=== PATIENT | female | born 1955 | race Two or more races ===

== ENCOUNTER 2020-08-03 09:22 | Outpatient (CLI) | payer OTHER | END 2020-08-03 09:32 | disposition home or self-care (01) | LOC: SONOGRAMA 09:22 | DX: N84.0 Polyp of corpus uteri (principal) ==

== ENCOUNTER 2023-05-23 07:01 | Day surgery (SDC) | payer OTHER ==
[~2023-05-23 07:01] MED LIST: CLONAZEPAM0.5 M1 PO; LIPITOR20 MG PO; LIPITOR40 MG PO; TOPROL XL50 M1 PO; ZESTRIL5 MG PO
== END 2023-05-23 17:15 | disposition home or self-care (01) ==
LOC: CIR.AMB 07:01
PROVIDERS: ATTEND Obstetrics & Gynecology
DX: N88.8 Other specified noninflammatory disorders of cervix uteri (principal); R93.5 Abnormal findings on diagnostic imaging of other abdominal regions, including retroperitoneum; Z20.822 Contact with and (suspected) exposure to COVID-19; I10 Essential (primary) hypertension